=== PATIENT | female | born 1995 | race Caucasian/White ===

== ENCOUNTER 2021-01-08 02:00 | Emergency (ER) | payer SELFPAY ==
[~2021-01-08 02:00] MED LIST: AMOXICILLIN500 MG PO; AUGMENTIN 875875 MG PO; DAYQUIL COLD/FL1 SG1 PO; KEFLEX500 MG PO; MOTRIN400 MG PO
[2021-01-08 02:14] VITALS: BP 117/72
[2021-01-08] MEDS ORDERED: CEPHALEXIN500 M1 PO (04:39)
== END 2021-01-08 04:45 | disposition home or self-care (01) ==
LOC: ED 02:00
DX: S01.81XA Laceration without foreign body of other part of head, initial encounter (principal); Z79.2 Long term (current) use of antibiotics; W01.0XXA Fall on same level from slipping, tripping and stumbling without subsequent striking against object, initial encounter; Y93.89 Activity, other specified; Y92.89 Other specified places as the place of occurrence of the external cause; Y99.8 Other external cause status